=== PATIENT | male | born 1995 | race Caucasian/White ===

== ENCOUNTER 2024-10-14 09:21 | Emergency (ER) | payer OTHER, SELFPAY ==
[2024-10-14 09:24] VITALS: BP 137/75
--- NOTE | 2024-10-14 10:20 | ED.SKININJ ---
HPI-Injury
General
Chief Complaint: Skin Surface Trauma
Source: patient
Time Seen by Provider: 10/14/24 09:52
History of Present Illness-Injury
Initial Injury comments:
29-year-old male presents with laceration to right knee he sustained today. He accidentally cut his leg with a hedge tremor. Last tetanus unknown. No numbness or tingling or loss of function. He has been ambulatory since the fall. No other
complaints
Past History
Past History
ED Past Medical History: None
ED Past Surgical History: None
Social History
Tobacco: Non-smoker
Phy Exam
Physical Exam
Physical Exam:
General: Well-appearing male no acute respiratory distress
Skin: 3 cm flap type laceration right anterior knee without tendon involvement. This is not deep through the skin.
Musculoskeletal full range of motion right leg
Course
Vital Signs
Initial and Last Documented VS:
Initial Vital Signs
Temp Pulse Resp BP Pulse Ox
98.3 F 79 16 137/75 97
10/14/24 09:24 10/14/24 09:24 10/14/24 09:24 10/14/24 09:24 10/14/24 09:24
Last Documented Vital Signs
Temp Pulse Resp BP Pulse Ox
98.3 F 79 16 137/75 97
10/14/24 09:24 10/14/24 09:24 10/14/24 09:24 10/14/24 09:24 10/14/24 09:24
MDM/Problems Addressed
Differential Diagnosis Includes:
Laceration right anterior knee without tendon involvement. Will update the patient's tetanus vaccine today. The wound was copiously irrigated with saline and anesthetized in a local fashion using 1% plain lidocaine. The wound was then closed in a
simple erupted fashion using 4-0 Prolene sutures. A total of 7 sutures were required to do so. Dressing was applied wound care instructions were given. Stable for discharge
*Pulse Oximetry
SaO2: 97
Oxygen Mode of Delivery: Room air
Patient hypoxic: no
*Critical Care Note
Total Time (30-74mins, 75-104mins- exclusive of procedures): Not Applicable
ED Attending Note
-
Portions of this chart may have been created with voice recognition software.� Occasional wrong word or��sound alike� substitutions may have occurred due to the inherent limitations of voice recognition software.
Discharge Plan
Departure
Patient Disposition: Home (Routine Discharge)
Date of Disposition: 10/14/24
Time of Disposition: 10:22
Patient with high blood pressure during this ER visit?: No
Discharge Problem:
Laceration
Instructions: Laceration Repair With Stitches (DC)
Referrals:
NONE,* [Family Provider, Internal Medicine]
Activity Restrictions/Additional Instructions:
Keep clean. If it gets wet in the shower just pat it dry. Have sutures removed in 12 to 14 days.
Discharge Date and Time
Print Language: YI
[2024-10-14] MEDS: ADACEL 0.5 ML IM (10:30)
== END 2024-10-14 10:52 | disposition home or self-care (01) ==
LOC: EMR 09:21
PROVIDERS: EMERGENCY PHYSICIAN Emergency Medicine
DX: S81.011A Laceration without foreign body, right knee, initial encounter (principal); Z23 Encounter for immunization; W29.3XXA Contact with powered garden and outdoor hand tools and machinery, initial encounter; Y93.H2 Activity, gardening and landscaping
CPT/HCPCS: 99282; 12002; 90471; 90715